=== PATIENT | male | born 1990 | race American Indian/Alaskan Native ===

== ENCOUNTER 2017-03-11 11:34 | Emergency (ER) | payer MEDICAID ==
--- NOTE | 2017-03-11 12:13 | EDM.PDOC ---
[id number]: MEDICAL [facility] [employer] Time Seen by Provider: 03/11/17 12:08 Source of Information: Reports: Patient History Limitations: Reports: No Limitations - History of Present Illness INITIAL COMMENTS - FREE TEXT/NARRATIVE: Went [place] yesterday. Woke up last night with stomach pain at 0200. Went back to sleep. Got up this morning for work feeling terrible. Went to work where he then vomited at 0900. Still feels weak. No nausea. No diarrhea. No further abdominal pain. Onset: Today Onset Date: 03/11/17 Onset Time: 02:00 Quality: Reports: Ache Severity: Mild Improves with: Reports: None Worsens with: Reports: None Associated Symptoms: Reports: Fever/Chills, Malaise, Nausea/Vomiting - Related Data Allergies Allergy/AdvReac Type Severity Reaction Status Date / Time No Known Allergies Allergy Verified 03/11/17 11:45 Home Meds: Home Meds NK [No Known Home Meds] 06/11/15 [History] Past Medical History - Past Health History Medical/Surgical History: Denies Medical/Surgical History Musculoskeletal History: Reports: Other (See Below) Other Musculoskeletal History: left dislocated shoulder Psychiatric History: Reports: Depression - Infectious Disease History Infectious Disease History: Reports: Chicken Pox Social & Family History - Family History HEENT: Reports: None Endocrine/Metabolic: Reports: Diabetes, type II - Tobacco Use Smoking Status *Q: Never Smoker Second Hand Smoke Exposure: Yes - Caffeine Use Caffeine Use: Reports: Coffee, Energy Drinks, Soda Other Caffeine Use: 2 drinks a day - Alcohol Use Days Per Week of Alcohol Use: 1 Number of Drinks Per Day: 2 Total Drinks Per Week: 2 - Recreational Drug Use Recreational Drug Use: No Drug Use in Last 12 Months: Yes Recreational Drug Type: Reports: Marijuana/Hashish Recreational Drug Use Frequency: Daily - Living Situation & Occupation Living situation: Reports: Single Occupation: Unemployed ED ROS GENERAL - Review of Systems Review Of Systems: See Below Constitutional: Reports: Chills, Weakness, Decreased Appetite HEENT: Reports: No Symptoms Respiratory: Reports: No Symptoms Cardiovascular: Reports: No Symptoms GI/Abdominal: Reports: Abdominal Pain, Vomiting : Reports: No Symptoms Musculoskeletal: Reports: No Symptoms Skin: Reports: No Symptoms ED EXAM, GI/ABD - Physical Exam Exam: See Below Exam Limited By: No Limitations General Appearance: Alert, WD/WN, No Apparent Distress Ears: Normal External Exam, Normal Canal, Hearing Grossly Normal, Normal TMs Nose: Normal Inspection, Normal Mucosa, No Blood Throat/Mouth: Normal Inspection, Normal Lips, Normal Teeth, Normal Gums, Normal Oropharynx, Normal Voice, No Airway Compromise Head: Atraumatic, Normocephalic Respiratory/Chest: No Respiratory Distress, Lungs Clear, Normal Breath Sounds, No Accessory Muscle Use, Chest Non-Tender Cardiovascular: Normal Peripheral Pulses, Regular Rate, Rhythm, No Edema, No Gallop, No JVD, No Murmur, No Rub GI/Abdominal Exam: Normal Bowel Sounds, Soft, Non-Tender, No Organomegaly, No Distention, No Abnormal Bruit, No Mass, Pelvis Stable Course - Vital Signs Last Recorded V/S: Last Vital Signs Temp 98.3 F 03/11/17 13:06 Pulse 61 03/11/17 13:06 Resp 14 03/11/17 13:06 BP 142/100 H 03/11/17 13:06 Pulse Ox 96 03/11/17 13:06 - Orders/Labs/Meds Labs: Laboratory Tests 03/11/17 03/11/17 Range/Units 12:07 12:07 WBC 13.3 H (4.5-11.0) K/uL RBC 5.22 (4.30-5.90) M/uL Hgb 16.1 H (12.0-15.0) g/dL Hct 47.5 (40.0-54.0) % MCV 91 (80-98) fL MCH 31 (27-31) pg MCHC 34 (32-36) % Plt Count 249 (150-400) K/uL Neut % (Auto) 81 H (36-66) % Lymph % (Auto) 9 L (24-44) % [place] % (Auto) 7 H (2-6) % Eos % (Auto) 2 (2-4) % Baso % (Auto) 0 (0-1) % Sodium 139 L (140-148) mmol/L Potassium 4.6 (3.6-5.2) mmol/L Chloride 103 (100-108) mmol/L Carbon Dioxide 27 (21-32) mmol/L Anion Gap 9.4 (5.0-14.0) mmol/L BUN 10 (7-18) mg/dL Creatinine 0.7 L (0.8-1.3) mg/dL Est Cr Clr Drug Dosing 144.31 mL/min Estimated GFR (MDRD) > 60 (>60) Glucose 94 (74-106) mg/dL Calcium 8.7 (8.5-10.1) mg/dL Total Bilirubin 0.5 (0.2-1.0) mg/dL AST 27 D (15-37) U/L ALT 41 (12-78) U/L Alkaline Phosphatase 115 (46-116) U/L Total Protein 7.6 (6.4-8.2) g/dL Albumin 4.0 (3.4-5.0) g/dL Globulin 3.6 H (2.3-3.5) g/dL Albumin/Globulin Ratio 1.1 L (1.2-2.2) Meds: Medications Discontinued Medications Generic Name Dose Route Start Last Admin Trade Name Freq PRN Reason Stop Dose Admin Sodium Chloride 1,000 mls @ 500 mls/hr 03/11/17 12:45 03/11/17 13:06 Normal Saline IV 500 mls/hr .BOLUS VALE Administration Departure - Departure Time of Disposition: 14:30 Disposition: Home, Self-Care 01 Condition: Good Clinical Impression: Gastroenteritis - Discharge Information Instructions: Viral Gastroenteritis, Adult, [id number] Referrals: PCP,None [Primary Care Provider] - Forms: ED Department Discharge Additional Instructions: Labs show mild dehydration. IV fluids initiated. Pt denies further pain or nausea. Just feeling weak. Note given excusing from work. Pt to advance diet slowly. Increase fluids. May return to work when no long vomiting or chilling. - Problem List & Annotations (1) Gastroenteritis SNOMED Code(s): 44201615 Code(s): K52.9 - NONINFECTIVE GASTROENTERITIS AND COLITIS, UNSPECIFIED Status: Acute Priority: Medium
[2017-03-11] MEDS ORDERED: Sodium Chloride 0.9% 1,000 ML IV SCH (12:45)
[2017-03-11 13:09] VITALS: BP 142/100
== END 2017-03-11 15:01 | disposition home or self-care (01) ==
LOC: JP.ED 11:34
DX: K52.9 Noninfective gastroenteritis and colitis, unspecified (principal)
CPT/HCPCS: 36415; 80053; 85025; 96360; 96361; 99284; J7040

== ENCOUNTER 2017-06-28 21:54 | Emergency (ER) | payer MEDICAID ==
[2017-06-28 22:00] VITALS: BP 122/81
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
[2017-06-28] MEDS ORDERED: Diphtheria,Pertussis(Acell),Tetanus Vaccine 0.5 ML SDV IM ONE (22:30)
--- NOTE | 2017-07-01 09:54 | CR ---
No fracture or dislocation.
== END 2017-06-28 22:57 | disposition home or self-care (01) ==
LOC: JP.ED 21:54
DX: S50.02XA Contusion of left elbow, initial encounter (principal); S40.812A Abrasion of left upper arm, initial encounter; V86.62XA Passenger of snowmobile injured in nontraffic accident, initial encounter
CPT/HCPCS: 73080-26-LT; 73080-LT; 90471; 90715; 99284-25

== ENCOUNTER 2018-12-28 02:24 | Emergency (ER) | payer MEDICAID ==
[2018-12-28] MEDS ORDERED: Alum Hydrox/Mag Hydrox/Simeth 15 ML, Lidocaine 2% 15 ML PO ONE ×2 (03:02)
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
[2018-12-28] MEDS: Ketorolac 60 MG/2 ML SDV IM ONE ×2 (03:24→03:29)
[2018-12-28] MEDS ORDERED: Sodium Chloride 0.9% 1,000 ML IV ONE (03:29)
[2018-12-28] MEDS ORDERED: Ketorolac 30 MG/ML SDV IVPUSH ONE (03:30)
[2018-12-28 03:48] VITALS: BP 154/101
== END 2018-12-28 04:35 | disposition home or self-care (01) ==
LOC: JP.ED 02:24
DX: E86.0 Dehydration (principal); R10.84 Generalized abdominal pain
CPT/HCPCS: 36415; 80305; 81001; 83690; 96361; 96374; 99284; A9270; J1885; J7030

== ENCOUNTER 2022-01-10 05:21 | Emergency (ER) | payer OTHER ==
[2022-01-10] MEDS ORDERED: Propofol 200 MG/20 ML SDV ONE (06:37)
[2022-01-10 07:30] VITALS: BP 128/77; PULSE 86
== END 2022-01-10 09:31 | disposition home or self-care (01) ==
LOC: JP.ED 05:21
DX: S43.005A Unspecified dislocation of left shoulder joint, initial encounter (principal); X58.XXXA Exposure to other specified factors, initial encounter
CPT/HCPCS: 23650; 23655; 73020-26-LT; 73020-LT; 99283; 99283-25; J2704

== ENCOUNTER 2024-07-24 11:16 | Emergency (ER) | payer SELFPAY ==
[2024-07-24] MEDS ORDERED: Propofol 200 MG/20 ML SDV ONE (11:52)
[2024-07-24 13:30] VITALS: BP 142/85; PULSE 73
== END 2024-07-24 13:26 | disposition home or self-care (01) ==
LOC: JP.ED 11:16
DX: M24.412 Recurrent dislocation, left shoulder (principal); X58.XXXA Exposure to other specified factors, initial encounter; Y93.72 Activity, wrestling
CPT/HCPCS: 23650; 23655; 73020-26-LT; 73020-LT; 73030-26-LT; 73030-LT; 99283; 99284-25; J2704

== ENCOUNTER 2025-02-01 02:14 | Emergency (ER) | payer SELFPAY ==
[2025-02-01] MEDS: Ketorolac 15 MG/ML SDV IVPUSH ONE (02:43)
[2025-02-01] MEDS ORDERED: Propofol 200 MG/20 ML SDV ONE (03:41)
[2025-02-01 07:12] VITALS: BP 117/58; PULSE 85
== END 2025-02-01 07:40 | disposition home or self-care (01) ==
LOC: JP.ED 02:14
DX: S43.005A Unspecified dislocation of left shoulder joint, initial encounter (principal); X50.0XXA Overexertion from strenuous movement or load, initial encounter
CPT/HCPCS: 01620; 23650; 23655; 73020; 73030; 96374; 99152; 99153; 99283; 99284; J1885; J2704